=== PATIENT | female | born 1985 | race Caucasian/White ===

== ENCOUNTER 2018-04-06 10:00 | Inpatient (IN) | payer MEDICAID ==
[2018-04-06] MEDS ORDERED: OLIVE OIL 118 ML BTL MISC PRN (10:22)
[2018-04-06] MEDS ORDERED: LR 1,000 ML IV PRN (10:22)
[2018-04-06] MEDS ORDERED: OXYTOCIN/RINGERS LACTATE 1,000 ML IV PRN (10:22)
[2018-04-06] MEDS ORDERED: MISOPROSTOL 200 MCG TAB PO PRN (10:22)
[2018-04-06] MEDS ORDERED: EPSOM SALT 454 GM TP PRN (10:22)
[2018-04-06] MEDS ORDERED: IBUPROFEN 600 MG TAB PO PRN (10:22)
[2018-04-06] MEDS ORDERED: AMMONIA AROMATIC 1 EACH AMP IH PRN (10:22)
[2018-04-06] MEDS ORDERED: LIDOCAINE 1% 300 MG/30 ML SDV SC PRN (10:22)
[2018-04-06] MEDS ORDERED: TERBUTALINE SULFATE 1 MG/ML VIAL IV PRN (10:22)
--- NOTE | 2018-04-06 10:27 | PDGENHP ---
History and Physical History and Physical: CARE: [facility] HPI: Patient is a 32 yo G 2 P 0010 at 40.1 weeks ega who presents to L&D with complaints of painful contractions since 1700 last night. She has been up most of the night - currently contractions are averaging every 5 min and palpate mild /mod. She states baby is active and denies LOF or VB. She transferred care from [place] to [facility] at 24 weeks. She has had an uncomplicated other than anemia that has been treated with a daily ferrous sulfate supplement. EDC: 04/05/2018 which is based on LMP: 06/29/17 which is known and consistent with Ultrasound at 8 weeks. Review of Systems: Constitutional: Denies any fever, chills, or fatigue HEENT: denies any visual changes, difficulty swallowing, hearing loss Cardiovascular: Denies any chest pain, palpitations, leg swelling Respiratory: denies any cough, wheezing, or shortness of breathe GI: Denies any nausea, vomiting, diarrhea, constipation : denies any dysuria, urgency, frequency, vaginal bleeding Musculoskeletal: denies any muscle or bone pain Skin: denies any rashes Neuro: denies any headache, seizures, lightheadedness, dizziness, or loss of consciousness Psychiatric: denies any depression, anxiety, or SI/HI thoughts HISTORY: Previous OB history: TAB 10/09 Past medical history: h/o hypothyroid - patient states never treated. Thyroid levels have been WNL during Past surgical history: none Social history: FOB supportive and involved, no alcohol, tobacco or substance use. Medications: PNV, ferrous sulfate Allergies: PCN LABS: Rh: A pos ABS: Neg Rubella: Immune HbsAg: NR HIV: NR VDRL: NR 1hr: 133 3hr: WNL GC: Neg Chlamydia: Neg Pap: Normal 05/11 GBS: neg PHYSICAL EXAM: Constitutional: WN, A&Ox3 Skin: pink, warm, dry HEENT: normocephalic atraumatic, supple Heart: RRR, no murmur Chest: CTA-B Abdomen: Soft, nontender, gravid SVE: 4/90/0 Extremities: trace edema, negative ines's sign Neuro: grossly normal Psych: normal affect assessment: Reassuring FHTs, baseline 130s +accels, no decels, moderate variability Contractions: toco q 4-5 Assessment: 1) 32 yo G 2 P 0 with IUP@ 40.1 wks ega 2) Spontaneous labor 3) GBS neg 4) Cat 1 FHR tracing Plan: 1) Admit to L&D 2) Diet as tolerated 3) Intermittent monitoring per protocol 4) Pain control as patient desires 5) Anticipate
[2018-04-06 11:14] LABS: PLATELET COUNT 200 10^3/uL (150-400)
[2018-04-06] MEDS ORDERED: LIDOCAINE 1% 300 MG/30 ML SDV ONE (11:24)
[2018-04-06] MEDS ORDERED: MISOPROSTOL 200 MCG TAB ONE (11:25)
[2018-04-06] MEDS ORDERED: OLIVE OIL 118 ML BTL ONE (11:25)
[2018-04-06] MEDS ORDERED: OXYTOCIN 10 UNIT/ML VIAL ONE (11:25)
[2018-04-06] MEDS ORDERED: TERBUTALINE SULFATE 1 MG/ML VIAL ONE (11:25)
[2018-04-06] MEDS ORDERED: AMMONIA AROMATIC 1 EACH AMP IH ONE (11:25)
--- NOTE | 2018-04-06 16:02 | OBPROG ---
Labor Progress Note Assessment/Plan: Assessment: 32 y/o Active labor Reassuring FHTs per doptone Contractions mod q 4-5 min AROM clear fluid - cervix /0 station Plan: Expectant management Pain control as patient desires Anticipate 04/06/18 16:00 Subjective/Intrapartum Course: 04/06/18 16:01 Tired, but breathing well with contractions. Has been in the tub which has been helpful with pain, although contractions have spaced out. Asking about AROM. Objective: 04/06/18 10:30 Patient ABO/Rh A POSITIVE 04/06/18 10:30 - SVE Dilation (cm): 6 Effacement (%): 90 Station: 0 Membranes: AROM Amniotic Fluid Color: Clear - Contraction Pattern Assessment Current Contraction Pattern: Regular - Procedures Non-surgical Procedures: Amniotomy - Physical Exam General Appearance: WD/WN, alert Estimated Weight: 2501-3400g Neck: non-tender Respiratory: normal breath sounds Cardiac/Chest: regular rate, rhythm Extremities: normal range of motion Skin: normal color, warm/dry Neuro/Psych: alert, normal mood/affect, oriented x 3 CNM Assessment - Uterine Assessment Contraction Strength: Moderate Uterine Resting Tone: Palpates Soft Between Uterine Contractions Contraction Frequency (minutes): 4-5 - Intermittent Auscultation Auscultation Method Used: Doppler Heart Rate Auscultated (bpm): 140 FHR Acceleration(s) Auscultated: Yes FHR Deceleration(s) Auscultated: Yes (early decels with contractions) Oxytocin Orders Assessment - Pre-Induction/Augmentation Assessment Gestational Age: 40 week(s) and 1 day(s) ICD10 Worksheet Patient Problems: Problems Problem Status Onset Prolonged latent phase of labor Acute - ICD10 Problem Qualifiers (1) Prolonged latent phase of labor
[2018-04-06] MEDS ORDERED: HYDROCODONE/APAP 5/325 TAB PO PRN (20:54)
[2018-04-06] MEDS ORDERED: HYDROCORTISONE 0.5% CREAM TP PRN (20:54)
--- NOTE | 2018-04-06 21:00 | OBDEL ---
Info Type: Vaginal Presentation at Delivery: Vertex L&D Analgesia/Anesthesia Type: Local GBS+: No Intrapartum Medications: Discontinued Medications Generic Name Dose Route Start Last Admin Trade Name Carlo PRN Reason Stop Dose Admin Ibuprofen 600 mg 04/06/18 10:22 04/06/18 20:53 Motrin PO 600 mg ONCE PRN Administration post , pain - Hospital Course Intrapartum: 04/06/18 16:01 Tired, but breathing well with contractions. Has been in the tub which has been helpful with pain, although contractions have spaced out. Asking about AROM. Indications for Delivery: Spontaneous Labor Vaginal Delivery - Delivery Provider Delivery Physician/CNM: Sara Branch - Labor and Delivery Onset of Contractions Date: 04/05/18 Onset of Contractions Time: 17:00 Onset of Contractions Type: Spontaneous Rupture of Membranes Date: 04/06/18 Rupture of Membranes Time: 15:29 Rupture of Membranes Type: Artificial Amniotic Fluid Color: Clear Dilation Complete Date: 04/06/18 Dilation Complete Time: 19:45 Placenta Delivery Date: 04/06/18 Placenta Delivery Time: 20:23 Total Hours of Labor: 27 Non-surgical Procedures: Amniotomy Laceration: Other (Specify) (right labial) Repair: 3-0, Vicryl Vaginal Sponge Count Correct: Yes Vaginal Needle Count Correct: Yes Vaginal Sweep Performed: No EBL: 200 Delivery Events: None Data CLEMENTE: 04/05/18 Gestational Age: 40 week(s) and 1 day(s) Wright Sex of : Male Score (1 Min): 8 Score (5 Min): 9 ICD10 Worksheet Patient Problems: Problems Problem Status Onset Prolonged latent phase of labor Acute Vaginal delivery Acute - ICD10 Problem Qualifiers (1) Prolonged latent phase of labor (2) Vaginal delivery
[2018-04-06] MEDS: ACETAMINOPHEN 325 MG TAB PO SCH (23:04)
[2018-04-07] MEDS: ACETAMINOPHEN 325 MG TAB PO SCH ×4 (05:00→21:00)
[2018-04-07] MEDS: IBUPROFEN 600 MG TAB PO SCH ×4 (05:00→21:20)
[2018-04-07] MEDS: FERROUS SULFATE 325 MG TAB PO SCH (11:05)
[2018-04-07] MEDS: DOCUSATE SODIUM 100 MG CAP PO PRN (11:05)
--- NOTE | 2018-04-07 11:47 | OBPP ---
Progress Note Assessment/Plan: Assessment: 32 y/o s/p ppd #1 going well Plan: Routine pp care plan d/c home tomorrow 04/06/18 16:00 04/07/18 11:44 Subjective/ Course: 04/07/18 11:48 Feeling great. Happy. going well. Pain is mild. Vag bleeding wnl, voiding, no concerns. Objective: 04/06/18 10:30 Patient ABO/Rh A POSITIVE 04/06/18 10:30 Temp Pulse Resp BP Pulse Ox 36.1 C 71 16 102/64 94 04/07/18 08:00 04/07/18 08:00 04/07/18 08:00 04/07/18 08:00 04/07/18 08:00 Uterine Position/Fundal Height: At Umbilicus Physical Exam - Physical Exam EENT: PERRL/EOMI Neck: non-tender, full range of motion Respiratory: normal breath sounds Cardiac/Chest: regular rate, rhythm Extremities: normal range of motion Back: Normal inspection Skin: normal color, warm/dry Neuro/Psych: no motor/sensory deficits, alert, normal mood/affect, oriented x 3
[2018-04-08] MEDS: IBUPROFEN 600 MG TAB PO SCH ×3 (03:30→12:56)
[2018-04-08] MEDS: ACETAMINOPHEN 325 MG TAB PO SCH ×2 (03:30→11:36)
--- NOTE | 2018-04-08 10:24 | OBPP ---
Progress Note Assessment/Plan: Assessment: Plan: 04/08/18 10:23 breast feeding well, bleeding very light, pain well controlled with PO medication Subjective/ Course: 04/07/18 11:48 Feeling great. Happy. going well. Pain is mild. Vag bleeding wnl, voiding, no concerns. 04/08/18 10:23 No c/o. Ready to d/c home today. Objective: 04/06/18 10:30 Patient ABO/Rh A POSITIVE 04/06/18 10:30 Temp Pulse Resp BP Pulse Ox 36.7 C 82 18 112/67 95 04/07/18 20:00 04/07/18 20:00 04/07/18 20:00 04/07/18 20:00 04/07/18 20:00 VSS today. Uterine Position/Fundal Height: At Umbilicus Uterine Tone: Firm
--- NOTE | 2018-04-08 10:25 | OBGCSDC ---
General Delivery Information - General Info : 2 Para: 1 Abortions: 1 Type: Vaginal L&D Analgesia/Anesthesia Type: Local Admission Date: 04/06/18 Labs: Patient ABO/Rh A POSITIVE 04/06/18 10:30 Hct 36.5 % (38.0-47.0) L 04/06/18 10:30 - Hospital Course Intrapartum: 04/06/18 16:01 Tired, but breathing well with contractions. Has been in the tub which has been helpful with pain, although contractions have spaced out. Asking about AROM. : 04/07/18 11:48 Feeling great. Happy. going well. Pain is mild. Vag bleeding wnl, voiding, no concerns. 04/08/18 10:23 No c/o. Ready to d/c home today. Vaginal - Delivery Provider Delivery Physician/CNM: Sara Branch - Diagnosis Labor: Spontaneous Rupture of Membranes Type: Artificial Amniotic Fluid Color: Clear Laceration: Other (Specify) (right labial) Repair: 3-0, Vicryl Delivery Events: None - Procedures Non-surgical Procedures: Amniotomy - Delivery Non-surgical Procedures: Amniotomy EBL: 200 [place] Data CLEMENTE: 04/05/18 Gestational Age: 40 week(s) and 3 day(s) Wright Delivery Date: 04/06/18 Delivery Time: 20:19 Sex of Infant: Male Weight (gm): 2996 g Score (1 Min): 8 Score (5 Min): 9 Discharge Information - Discharge Information Condition: Good Instruction/Follow Up: Two Weeks, Four Weeks, Six Weeks
[2018-04-08 11:15] VITALS: BP 109/63
[2018-04-08] MEDS: FERROUS SULFATE 325 MG TAB PO SCH (12:55)
[2018-04-08] MEDS: DOCUSATE SODIUM 100 MG CAP PO PRN (12:56)
== END 2018-04-08 14:50 | disposition home or self-care (01) | DRG 560 ==
LOC: FLD 10:00 → OBSVTOIN 10:24 → FOB 22:51
PROVIDERS: ADMIT Advanced Practice Midwife; ATTEND Advanced Practice Midwife
DX: O70.0 First degree perineal laceration during delivery (principal); O76 Abnormality in fetal heart rate and rhythm complicating labor and delivery; O63.9 Long labor, unspecified; O99.280 Endocrine, nutritional and metabolic diseases complicating pregnancy, unspecified trimester; E03.9 Hypothyroidism, unspecified; Z3A.40 40 weeks gestation of pregnancy; Z37.0 Single live birth
CPT/HCPCS: J2590; J3105

== ENCOUNTER → 2018-05-09 | Outpatient (CLI) | payer MEDICAID | LOC: FLACT 14:07 | PROVIDERS: ATTEND Advanced Practice Midwife | DX: Z39.1 Encounter for care and examination of lactating mother (principal) | CPT/HCPCS: G0463 ==